=== PATIENT | male | born 1975 | race Caucasian/White ===

== ENCOUNTER 2017-07-21 13:24 | Observation (INO) | payer BC ==
[~2017-07-21] VITALS: Ht 165.1 cm; Wt 65.8 kg
[~2017-07-21 13:24] MED LIST: AMLO10TA80 PO; BENA20TA3 PO; FURO40TA5 PO; GLIM4TAB2 PO; INSASP SQ; INSLAN SQ
[2017-07-21 14:55] LABS: HEMOGLOBIN. 10.8 g/dL (14.0-18.0); MEAN CORPUSCULAR HEMOGLOBIN 25.5 pg (28.0-32.0); MEAN PLATELET VOLUME 7.6 fl (7.4-10.4); PLATELET 221 x1000/uL (130-400); RED BLOOD CELL COUNT 4.24 mill/uL (4.7-6.1); RED CELL DISTRIBUTION WIDTH 19.3 % (11.6-14.6)
[2017-07-21 15:03] LABS: CHLORIDE 81 mEq/L (98-107); INR 1.2; PROTHROMBIN TIME 12.4 sec (9.4-11.6)
[2017-07-21 15:09] LABS: CARBON DIOXIDE 15 mEq/L (21-32)
[2017-07-21 15:15] LABS: TROPONIN I 0.03 ng/mL (0.00-0.04)
[2017-07-21 15:32] LABS: PLATELET ESTIMATE NORMAL
[2017-07-21] MEDS ORDERED: IPRATROPIUM/ALBUTEROL 0.5-3(2.5)MG/3ML NEB INH PRN (16:30)
[2017-07-21] MEDS ORDERED: ACETAMINOPHEN 325MG TABLET PO PRN (16:30)
[2017-07-21] MEDS ORDERED: CLONIDINE 0.1MG TABLET PO PRN (16:30)
[2017-07-21] MEDS ORDERED: ONDANSETRON HCL 4MG/2ML VIAL IV PRN (16:30)
[2017-07-21 19:03] VITALS: BP 107/71
[2017-07-21 19:45] VITALS: BP 118/70
[2017-07-21 20:00] VITALS: BP 118/70
[2017-07-21] MEDS ORDERED: DEXTROSE 50% WATER 50ML SYRINGE IV PRN (21:30)
[2017-07-21] MEDS: BLOOD SUGAR DIAGNOSTIC STRIP TEST SCH (21:33)
[2017-07-21] MEDS: HYDROCODONE/ACETAMINOPHEN 5/325MG TABLET PO PRN (21:33)
[2017-07-22] VITALS: BP_SYST 102; BP_SYST 172; BP_DIAS 52; BP_DIAS 81
[2017-07-22] MEDS: HYDROCODONE/ACETAMINOPHEN 5/325MG TABLET PO PRN ×2 (03:41→08:57)
[2017-07-22 04:00] VITALS: BP 107/47
[2017-07-22 07:36] LABS: HEMATOCRIT. 33.9 % (42.0-52.0); HEMOGLOBIN. 10.9 g/dL (14.0-18.0); MEAN CORPUSCULAR HEMOGLOBIN 25.6 pg (28.0-32.0); MEAN CORPUSCULAR VOLUME 79.3 fL (80.0-94.0); MEAN PLATELET VOLUME 8.3 fl (7.4-10.4); PLATELET 242 x1000/uL (130-400); RED BLOOD CELL COUNT 4.27 mill/uL (4.7-6.1); RED CELL DISTRIBUTION WIDTH 19.6 % (11.6-14.6)
[2017-07-22] MEDS: BLOOD SUGAR DIAGNOSTIC STRIP TEST SCH ×2 (07:40→12:40)
[2017-07-22 08:00] VITALS: BP 123/66
[2017-07-22 08:00] LABS: T4 FREE 0.84 ng/dL (0.76-1.46)
[2017-07-22] MEDS ORDERED: ENOXAPARIN 40MG/0.4ML SYR SUBCUT SCH (09:00)
[2017-07-22] MEDS ORDERED: IBUPROFEN 200MG TABLET PO PRN (11:00)
[2017-07-22] MEDS ORDERED: MORPHINE SULFATE 4 MG/ML CPJ (NOT FOR IM USE) IV PRN (11:15)
[2017-07-22 12:00] VITALS: BP 135/58
[2017-07-22 14:01] LABS: PLATELET ESTIMATE NORMAL
[2017-07-22 16:00] VITALS: BP 108/56
== END 2017-07-22 18:35 | disposition home or self-care (01) ==
LOC: ER 13:39 → 7WST 16:02 → INTOOBSV 16:02 → EDBEDREQ 16:05 → CANRESERV 16:09 → ENRESERV 16:09
PROVIDERS: ADMIT Internal Medicine; ATTEND Internal Medicine
DX: E11.649 Type 2 diabetes mellitus with hypoglycemia without coma (principal); E11.22 Type 2 diabetes mellitus with diabetic chronic kidney disease; N18.6 End stage renal disease; E66.9 Obesity, unspecified; E11.21 Type 2 diabetes mellitus with diabetic nephropathy; E87.1 Hypo-osmolality and hyponatremia; I13.2 Hypertensive heart and chronic kidney disease with heart failure and with stage 5 chronic kidney disease, or end stage renal disease; I50.9 Heart failure, unspecified; D64.9 Anemia, unspecified; Z99.2 Dependence on renal dialysis
CPT/HCPCS: 36415; 71010; 80048; 80053; 80061; 82962; 83880; 84439; 84443; 84484; 85025; 85610; 93005; 93971; 96372; 96374; 96375; 99285; G0378; J1650; J2270

== ENCOUNTER 2018-06-04 10:20 | Emergency (ER) | payer BC, MEDICAID ==
[~2018-06-04] VITALS: Ht 177.8 cm; Wt 87.0 kg
[~2018-06-04 10:20] MED LIST changes: -GLIM4TAB2 PO; -INSASP SQ; -INSLAN SQ
[2018-06-04 12:20] LABS: HEMATOCRIT. 41.2 % (42.0-52.0); HEMOGLOBIN. 13.4 g/dL (14.0-18.0); MEAN CORPUSCULAR HEMOGLOBIN 28.6 pg (28.0-32.0); MEAN CORPUSCULAR VOLUME 87.8 fL (80.0-94.0); PLATELET 253 x1000/uL (130-400); RED BLOOD CELL COUNT 4.69 mill/uL (4.7-6.1); RED CELL DISTRIBUTION WIDTH 15.9 % (11.6-14.6)
[2018-06-04 12:22] LABS: CHLORIDE 89 mEq/L (98-107)
[2018-06-04 12:23] LABS: PROTHROMBIN TIME 10.3 sec (9.4-11.6)
[2018-06-04 12:47] LABS: PLATELET ESTIMATE NORMAL
[2018-06-04 13:45] VITALS: BP 124/87
== END 2018-06-04 13:45 | disposition home or self-care (01) ==
LOC: ER 10:20
DX: E11.22 Type 2 diabetes mellitus with diabetic chronic kidney disease (principal); R53.1 Weakness; N18.9 Chronic kidney disease, unspecified; Z79.4 Long term (current) use of insulin
CPT/HCPCS: 36415; 71045; 80053; 84484; 85025; 85610; 93005; 99285; Z7610

== ENCOUNTER 2019-05-17 23:32 | Emergency (ER) | payer MEDICARE, BC, OTHER ==
[~2019-05-17] VITALS: Ht 175.3 cm; Wt 84.0 kg
[~2019-05-17 23:32] MED LIST changes: +BENA20TA10 PO; -BENA20TA3 PO
[2019-05-18 00:59] LABS: HEMATOCRIT 29.4 % (42.0-52.0); HEMOGLOBIN 9.6 g/dL (14.0-18.0); MEAN CORPUSCULAR HEMOGLOBIN 28.2 pg (28.0-32.0); PLATELET 132 x1000/uL (130-400); RED BLOOD CELL COUNT 3.42 mill/uL (4.7-6.1); RED CELL DISTRIBUTION WIDTH 18.3 % (11.6-14.6)
[2019-05-18 01:10] LABS: CHLORIDE 95 mEq/L (98-107)
[2019-05-18 01:29] VITALS: BP 123/74
== END 2019-05-18 02:28 | disposition home or self-care (01) ==
LOC: ER 23:32
DX: I95.9 Hypotension, unspecified (principal); T85.838A Hemorrhage due to other internal prosthetic devices, implants and grafts, initial encounter; E11.22 Type 2 diabetes mellitus with diabetic chronic kidney disease; N18.6 End stage renal disease; Z99.2 Dependence on renal dialysis; Y92.89 Other specified places as the place of occurrence of the external cause
CPT/HCPCS: 36415; 80053; 85027; 86850; 86900; 86901; 99283; Z7610

== ENCOUNTER 2019-08-20 03:06 | Emergency (ER) | payer MEDICARE, BC, OTHER ==
[~2019-08-20] VITALS: Ht 167.6 cm; Wt 82.0 kg
[2019-08-20 03:45] LABS: BASOPHILS % 0.7 % (0.0-2.0); CHLORIDE 89 mEq/L (98-107); EOSINOPHILS % 2.8 % (0.0-5.0); HEMATOCRIT. 36.8 % (42.0-52.0); LYMPHOCYTES % 8.4 % (20.0-50.0); MEAN CORPUSCULAR VOLUME 85.8 fL (80.0-94.0); MEAN PLATELET VOLUME 7.9 fl (7.4-10.4); MONOCYTES % 10.2 % (2.0-8.0); NEUTROPHILS % 77.9 % (40.0-76.0); PLATELET 179 x1000/uL (130-400); RED BLOOD CELL COUNT 4.29 mill/uL (4.7-6.1); RED CELL DISTRIBUTION WIDTH 16.6 % (11.6-14.6)
[2019-08-20 05:14] VITALS: BP 171/87
== END 2019-08-20 06:12 | disposition home or self-care (01) ==
LOC: ER 03:06
DX: E11.22 Type 2 diabetes mellitus with diabetic chronic kidney disease (principal); E11.649 Type 2 diabetes mellitus with hypoglycemia without coma; N18.6 End stage renal disease; I50.9 Heart failure, unspecified; Z99.2 Dependence on renal dialysis; Z79.4 Long term (current) use of insulin; Z91.013 Allergy to seafood
CPT/HCPCS: 36415; 82962; 99283

== ENCOUNTER → 2019-09-06 | Outpatient (CLI) | payer MEDICARE, BC, OTHER | END | disposition home or self-care (01) | LOC: CARD 09:35 | PROVIDERS: ATTEND Internal Medicine Geriatric Medicine | DX: R56.9 Unspecified convulsions (principal); E11.40 Type 2 diabetes mellitus with diabetic neuropathy, unspecified ==

== ENCOUNTER 2020-11-09 18:18 | Emergency (ER) | payer MEDICARE, BC ==
[~2020-11-09] VITALS: Ht 165.1 cm; Wt 78.0 kg
[2020-11-09 18:22] VITALS: BP 121/67
[2020-11-09 18:50] LABS: BASOPHILS % 0.7 % (0.0-2.0); HEMOGLOBIN. 8.7 g/dL (14.0-18.0); LYMPHOCYTES % 8.9 % (20.0-50.0); MEAN CORPUSCULAR VOLUME 87.2 fL (80.0-94.0); MONOCYTES % 8.3 % (2.0-8.0); NEUTROPHILS % 79.1 % (40.0-76.0); PLATELET 190 x1000/uL (130-400); RED CELL DISTRIBUTION WIDTH 16.6 % (11.6-14.6)
[2020-11-09 18:55] LABS: CHLORIDE 98 mEq/L (98-107)
[2020-11-09 19:04] LABS: INR 1.2; PROTHROMBIN TIME 12.7 sec (9.6-11.0)
== END 2020-11-10 04:44 | disposition left against medical advice (07) ==
LOC: ER 18:18 → CANBEDREQ 11-10 07:49
DX: D64.9 Anemia, unspecified (principal); R58 Hemorrhage, not elsewhere classified; I95.9 Hypotension, unspecified; I77.0 Arteriovenous fistula, acquired; I11.0 Hypertensive heart disease with heart failure; I50.9 Heart failure, unspecified; E11.9 Type 2 diabetes mellitus without complications
CPT/HCPCS: 36415; 80053; 85025; 86850; 86900; 99284